=== PATIENT | male | born 1940 | race Caucasian/White ===

== ENCOUNTER 2017-11-13 09:37 | Day surgery (SDC) | payer MEDICARE, BC, OTHER ==
[~2017-11-13 09:37] MED LIST: ACETAMINOPHEN 500 MG TABLET PO PRN; HYDROmorphone HCL 2 MG/ML VIAL IV PRN; RINGER'S SOLUTION,LACTATED 1,000 ML IV PRN; ceFAZolin SODIUM 1 GM VIAL IV PRN
[2017-11-13] MEDS ORDERED: RINGER'S SOLUTION,LACTATED 1,000 ML IV ONE (10:23)
[2017-11-13] MEDS ORDERED: BUPIVACAINE HCL 50 ML VIAL IJ ONE (11:47)
--- NOTE | 2017-11-13 11:52 | POSTOP NO ---
Date of Surgery: 11/13/17 Patient Tolerated the Procedure: Well Post Operative Diagnosis/Procedures: Contract Consultant: Chivo Martin PA-C Post-operative Diagnosis: Painful retained implants right dorsal wrist Finding: Above Procedure: Removal of deep implants right dorsal wrist Estimated Blood Loss: Minimal Specimens: Implants to return the patient
--- NOTE | 2017-11-13 11:55 | OR ---
Operative Report - Dictated Report Narrative: Date: 11/13/2017 Surgeon: Michael Grande M.D. News Editor: Chivo Martin PA-C Preoperative diagnosis: Painful retained implants right dorsal wrist Postoperative diagnosis: Painful retained implants right dorsal wrist Operation: 1 - Removal of deep implants right dorsal wrist 2 - Intraoperative interpretation of x-rays Retained implants: None Anesthesia: Mac plus local Tourniquet time: 37 Minutes at 250 mmHg Estimated blood loss: Minimal Drains: None Specimen: Implants for return to patient Complications: None Indications: Mr. Tidwell is a 77-year-old gentleman who previously underwent open reduction internal fixation of the right distal radius through a dorsal approach at an outside hospital and subsequently developed pain related to the implants. They've gone on to heal the fracture however had notable symptoms related to the implants and wished to have these removed.. They were seen in the clinic and discuss the options for treatment. He wished to proceed with surgical removal of deep implants. The risks and benefits alternatives were discussed. Risks of , blood clots, bleeding, infection, nerve/tendon/ blood vessel injury, persistent pain, wound complications, and need for additional procedures were discussed. Consent was obtained in the clinic. Procedure: After marking the correct extremity in the preoperative holding area, the patient was taken to the operating room. A timeout was performed. IV antibiotics consisting of Ancef were administered. Adequate anesthesia was placed. The extremity was then prepped and draped in standard sterile fashion. Utilizing the prior incision, sharp dissection was carried through the skin after exsanguinating extremity and inflating tourniquet. A dorsal approach to the plate through the 3/4 compartment was performed elevating the fourth compartment off the plate. There do not appear to be any damage to the underlying tendons. Careful dissection was carried down to the implants. The implants were then removed without complication. There did not appear to be any complications related to the fracture nor any signs of infection. Once all the implants were removed, the wound was thoroughly irrigated. The tourniquet was deflated. The dorsal wrist retinaculum was repaired with 3-0 Vicryl. All prominent bone was removed and the soft tissues were closed in a layered fashion with 3-0 Vicryl and the skin was closed with 4-0 nylon. Final images were obtained with mini C-arm. Sterile dressings of Xeroform, 4 x 4, soft roll , Trace wrap. 0.5% Marcaine without epinephrine was infused into the skin edges prior to placing dressings. All sponge, needle, sharp, and instrument counts were correct prior to closing the wound. The patient was awoken and transferred to the postanesthesia care in stable condition.
[2017-11-13] MEDS ORDERED: IBUPROFEN 800 MG TABLET PO ONE (12:15)
[2017-11-13 13:02] VITALS: BP 146/73
== END 2017-11-13 09:38 | disposition home or self-care (01) ==
LOC: AMB 09:37
PROVIDERS: ATTEND Orthopaedic Surgery
PROC: 0PPH04Z Removal of Internal Fixation Device from Right Radius, Open Approach (ICD-10-PCS; principal; 2017-11-13)
DX: T84.84XA Pain due to internal orthopedic prosthetic devices, implants and grafts, initial encounter (principal); I10 Essential (primary) hypertension; E78.5 Hyperlipidemia, unspecified; M17.0 Bilateral primary osteoarthritis of knee; G47.33 Obstructive sleep apnea (adult) (pediatric); Z87.891 Personal history of nicotine dependence; Z68.35 Body mass index [BMI] 35.0-35.9, adult